=== PATIENT | male | born 1975 | race Caucasian/White ===

== ENCOUNTER 2025-05-27 03:00 | Emergency (ER) | payer MEDICAID ==
[~2025-05-27] VITALS: Ht 167.6 cm; Wt 75.0 kg
[2025-05-27 03:04] VITALS: BP 157/109; PULSE 76; RESP 16; TEMP 36.9; O2SAT 100
== END 2025-05-27 03:32 | disposition home or self-care (01) ==
LOC: ER 03:00
DX: S81.811D Laceration without foreign body, right lower leg, subsequent encounter (principal); X58.XXXD Exposure to other specified factors, subsequent encounter
CPT/HCPCS: 99283; Z7610 ×2